=== PATIENT | male | born 1965 | race African-American/Black ===

== ENCOUNTER 2020-06-08 23:07 | Emergency (ER) | payer OTHER ==
[~2020-06-08] VITALS: Ht 175.3 cm; Wt 97.7 kg
[~2020-06-08 23:07] MED LIST: HYDR-1475 PO; LISI-662 PO
[2020-06-09] MEDS ORDERED: IBUPROFEN 400 MG TABLET PO ONE (01:00)
[2020-06-09] MEDS ORDERED: ACETAMINOPHEN 325 MG TABLET PO ONE (01:00)
[2020-06-09] MEDS ORDERED: LIDOCAINE 5% TRANSDERMAL PATCH TD ONE (04:00)
[2020-06-09 04:20] VITALS: BP 140/83
== END 2020-06-09 04:28 | disposition home or self-care (01) ==
LOC: EMS 23:09
DX: M54.5 Low back pain (principal); I10 Essential (primary) hypertension; Z79.899 Other long term (current) drug therapy; V43.53XA Car driver injured in collision with pick-up truck in traffic accident, initial encounter; Y93.89 Activity, other specified; Y92.89 Other specified places as the place of occurrence of the external cause; Y99.8 Other external cause status
CPT/HCPCS: Z7502; Z7610